=== PATIENT | female | born 1985 | race Caucasian/White ===

== ENCOUNTER 2021-08-27 07:41 | Inpatient (IN) ==
[2021-08-27] MEDS ORDERED: OXYTOCIN 30 UNITS/500 ML BAG IV PRN ×3 (08:21→17:28)
--- NOTE | 2021-08-27 08:41 | History & Physical Report ---
Date of Service August 27, 2021 Assessment & Plan (1) : Plan: 36 y/o at 37 wga w/ SROM VSS Fetus cat 1 SROM - SROM confirmed, 2cm now and donna so will manage expectantly for now GBS neg Epidural PRN History of Present Illness Chief Complaint: SROM Primary Care Provider: Bob Trejo MD 36 y/o at 37 wga w/ SUNITHA 12/10 by LMP presents w/ c/o LOF since 5AM. Stood up and felt large gush of fluid and small amount of continuous leaking since then. +FM, denies painful ctx. 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: G1 2017 at 40 wks G2 SAB 2019 G3 current q28-30d cycles Hx genital warts 02/2021 neg cytology Allergies Allergy/AdvReac Type Severity Reaction Status Date / Time No Known Drug Allergies Allergy Verified 08/20/21 15:53 Home Medications Medication Instructions Recorded Confirmed Type vitamins-iron fumarate 27 1 tab PO DAILY 09/03/18 08/20/21 History mg iron-folic acid 0.8 mg tablet ( Vitamin) Patient History Medical History Genital warts History of chicken pox Need for rhogam due to Rh negative mother No known health problems Surgical History No history of previous surgery [place] teeth extracted Family History Grandmother (Maternal) Pancreatic cancer Mother Thyroid disease Hypothyroidism Grandfather (Maternal) Lung cancer Other Dyslipidemia Denies family history of Ovarian cancer Prostate cancer Breast cancer Social History Smoking Status: Never smoker Second Hand Exposure: No; Do You Dip or Chew Tobacco: No; Tobacco Cessation Education Requested by Patient: No Hx Alcohol Use: No Hx Substance Use: No Preferred Language: Mohawk Communication Ability: Effective Beliefs That Will Affect Care: None marital status: marital status details: John (32) [phone] Current Living Situation: Spouse Current Living Situation Comment: lives with spouse and daughter current occupational status: employed 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 Safe at Home: Yes Safety Concerns: Feels Safe At This Time Assistive Devices: None Physical Exam Constitutional: WD/WN, vitals as above Respiratory: normal respiratory effort; no respiratory distress and no labored breathing Genitourinary: OB Exam Abdomen: + vertex and + estimated weight (7-8) Manual OB Exam: + cervical dilation 2 cm, + cervical effacement 50%, + station - 2 and + amniotic fluid (+nitrazine, ferning, small amount of pooling) OB Exam Monitor Tracing: + external FHT monitor used, + external uterine monitor used (q4) and + category I (145/mod/+accel/-decel) Results & Data ([facility]) Vital Signs (Past 12 Hours) Vital Signs Pulse BP 08/27/21 07:51 102 H 139/85 Laboratory Results OB Labs: Blood Type O Negative 02/10/21 Antibody Screen NEGATIVE 06/30/21 Hemoglobin 11.2 g/dL (12.0-16.0) L 06/30/21 Hematocrit 32.3 % (37-47) L 06/30/21 Mean Corpuscular Volume 93.8 fL (80-100) 02/10/21 Platelet Count 261 K/uL (130-400) 02/10/21 Rubella IgG Antibody Immune (Immune) 02/10/21 Rapid Plasma Reagin Nonreactive (Nonreactive) 02/10/21 Hepatitis B Surface Antigen Neg (Neg) 02/10/21 HIV (1&2) Ab and P24 Ag, 4th Gener Neg (Neg) 02/10/21 Glucose 1 Hour 50 gm Load 117 mg/dl (70-130) 06/30/21 Maternal Serum Alpha Fetoprotein 46.5 ng/mL 04/08/21 OB Optional Labs: Chlamydia trachomatis RNA NOT DETECTED (NOT DETECTED) 02/10/21 Neisseria gonorrhoeae RNA NOT DETECTED (NOT DETECTED) 02/10/21 Alpha Fetoprotein Triple Screen SEE NOTE 04/08/21 Labs Reviewed: low risk cfdna neg cf/sma neg afp Diagnostic Findings ant plac Coding Level of Care Code None Diagnoses Z34.90
[2021-08-27 09:06] LABS: Hematocrit (blood only) 33.1 % (37-47); Hemoglobin 11.2 g/dL (12.0-16.0); Mean Corpuscular Hemoglobin 31.4 pg (25-34); Mean Corpuscular Hgb Conc 33.8 g/dL (32-36); Mean Corpuscular Volume 92.7 fL (80-100); Mean Platelet Volume 10.3 fL (7.4-10.4); Platelet Count 219 K/uL (130-400); RDW Coefficient of Variation 13.1 % (11.5-14.5); RDW Standard Deviation 44.2 fL (36.4-46.3); Red Blood Count 3.57 M/uL (4.2-5.4); White Blood Count 10.08 K/uL (4.8-10.8)
[2021-08-27] MEDS: LACTATED RINGER'S 1,000 ML IV PRN ×2 (12:27→13:53)
[2021-08-27] MEDS ORDERED: BUPIVACAINE 0.25% 30 ML VIAL ONE (12:38)
[2021-08-27] MEDS ORDERED: SODIUM CHLORIDE 0.9% INJ 10 ML VIAL ONE (12:38)
[2021-08-27] MEDS ORDERED: ePHEDrine sulfate 50 MG/ML AMP ONE (12:38)
[2021-08-27] MEDS ORDERED: fentaNYL 2MCG/ML ROPIVACAINE 1.25MG/ML 100 ML BAG EPI ONE (12:39)
[2021-08-27] MEDS ORDERED: fentaNYL citrate 100 MCG/2 ML VIAL ONE (12:39)
[2021-08-27] MEDS ORDERED: diphenhydrAMINE 50 MG/ML VIAL IV PRN (14:04)
[2021-08-27] MEDS ORDERED: fentaNYL 2MCG/ML ROPIVACAINE 1.25MG/ML 100 ML BAG EPI PRN (14:04)
[2021-08-27] MEDS ORDERED: ePHEDrine sulfate 50 MG/ML AMP IV PRN (14:04)
[2021-08-27] MEDS ORDERED: ONDANSETRON INJ 2 MG/ML 2 ML VIAL IV PRN (14:04)
[2021-08-27] MEDS ORDERED: NALOXONE HCL 1 MG in SODIUM CHLORIDE 0.9% 1000ML 1,000 ML IV PRN (14:04)
[2021-08-27] MEDS ORDERED: NALBUPHINE HCL INJ 10 MG/ML AMP IV PRN (14:04)
[2021-08-27] MEDS ORDERED: NALOXONE HCL 0.4 MG/1 ML VIAL/CARP IV PRN (14:04)
--- NOTE | 2021-08-27 14:04 | Anesthesiology Consultation ---
Date of Service August 27, 2021 Assessment & Plan (1) Encounter for pre-operative examination: Chart Review Chart Review: Patient NOT seen in Pre Admission Testing and Acceptable Risk for Labor Epidural Consults Requested none ASA ASA2 Proposed Anesthesia Anesthesia Type: Labor Epidural Risk / Benefits Reviewed With: PT / POA / Parent / Guardian, Accepts Plan and Informed Consent Obtained History Height/Weight Height: 5 ft 7 in Weight: 84.822 kg Allergies Allergy/AdvReac Type Severity Reaction Status Date / Time No Known Drug Allergies Allergy Verified 08/20/21 15:53 Medications Home Medications Medication Instructions Recorded Confirmed Last Taken vitamins-iron fumarate 27 1 tab PO DAILY 09/03/18 08/27/21 08/26/21 16:00 mg iron-folic acid 0.8 mg tablet ( Vitamin) Active Medications Generic Name Dose Route Start Last Admin Trade Name Freq PRN Reason Stop Dose Admin Lactated Ringer's 1,000 mls @ 125 mls/hr 08/27/21 08:21 08/27/21 15:15 Lr IV 08/29/21 08:20 Infused .Q8H PRN Infusion L&D Protocol Protocol Past Medical History Medical History Genital warts History of chicken pox Need for rhogam due to Rh negative mother No known health problems Exercise / Class Metabolic Activity II 4-5 Yardwork/Stairs/Walk up hill Past Family History Family History Grandmother (Maternal) Pancreatic cancer Mother Thyroid disease Hypothyroidism Grandfather (Maternal) Lung cancer Other Dyslipidemia Denies family history of Ovarian cancer Prostate cancer Breast cancer Past Surgical History Surgical History No history of previous surgery [place] teeth extracted Past Anesthesia History No Hx of Anesthesia Complications and No Family Hx of Anesthesia Complications History of PONV No Hx of PONV and No Hx of Motion Sickness Social History Smoking Status: Never smoker Do You Dip or Chew Tobacco: No Hx Alcohol Use: No Hx Substance Use: No substance use type: does not use Physical Exam Vital Signs Last Vital Signs Temp 37.2 C 08/27/21 11:50 Pulse 103 H 11/19/21 18:15 Resp 16 08/27/21 11:50 BP 137/91 08/27/21 18:15 Pulse Ox 100 08/27/21 16:53 ENMT Mouth: no dentition abnormality Thyromental Distance: > or= 3.5 Finger Breadths Mallampati Class: II Neck normal visual inspection Respiratory normal respiratory effort Auscultation: lungs clear to auscultation bilaterally Cardiovascular Rate/Rhythm: regular rate and regular rhythm Psychiatric Orientation: alert Testing Laboratory Results 08/27/21 08:41
[2021-08-27] MEDS ORDERED: SILVER NITR/POTASSIUM NITRATE APPLICATOR ONE (17:03)
[2021-08-27] MEDS ORDERED: SUPERCREAM 0.870% 15 GM JAR EXT PRN (17:28)
[2021-08-27] MEDS ORDERED: HYDROCORTISONE ACETATE 25 MG SUPP PR PRN (17:28)
[2021-08-27] MEDS ORDERED: ACETAMINOPHEN 325 MG TAB PO PRN (17:28)
[2021-08-27] MEDS ORDERED: BENZOCAINE 20% AER SPR 82.5 GM CAN EXT PRN (17:28)
[2021-08-27] MEDS ORDERED: oxyCODONE/ACETAMINOPHEN 5mg/325mg TAB PO PRN (17:28)
[2021-08-27] MEDS ORDERED: DIPHTHERIA/TETANUS/PERTUSSIS 0.5 ML SYR/VIAL IM ONE (17:28)
--- NOTE | 2021-08-27 17:37 | Delivery Summary ---
Vaginal Delivery Summary Date of Service August 27, 2021 Vaginal Delivery Summary Patient is a 36-year-old 3 para 1-0-1-1 female who presents at 37 weeks with spontaneous rupture of membranes. She walked for several hours but cervix remained the same. A fore serrato was then ruptured for a copious amount of clear fluid. She then establish a more consistent contraction pattern. She requested epidural analgesia which was effective. Her contractions were then augmented with Pitocin. She progressed to fully dilated with the urge to push. She pushed effectively over intact perineum for delivery of a viable female infant. The was vigorous and crying upon delivery. After 1 minute the cord was clamped and cut. Cord blood was obtained. The placenta was then expressed intact with a 3 vessel cord. the perineum was intact but she had several perineal warts that she wanted removed. Metzenbaum scissors were used to remove the lesions. A large matte of warts were removed from the coccyx area and the defect was repaired with 3-0 chromic. Hemostasis at the other sites was controlled with siver nitrate. bleeding was controlled with dilute pitocin. EBL is 100 cc. Mother and are doing well post delivery. 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
--- NOTE | 2021-08-27 18:25 | Anesthesia Procedure Note ---
Date of Service August 27, 2021 Anesthesia Post Epidural Note Vital Signs Vital Signs: Temp Pulse Resp BP Pulse Ox 37.2 C 103 H 16 137/91 100 08/27/21 11:50 08/27/21 18:15 08/27/21 11:50 08/27/21 18:15 08/27/21 16:53 Pain Intensity Bilateral Abdomen: Pain Intensity: 0 Notes Mental Status: alert / awake / arousable Nausea / Vomiting: adequately controlled Pain: adequately controlled Airway Patency, RR, SpO2: stable & adequate BP & HR: stable & adequate Hydration State: stable & adequate Neuraxial Anesthesia: was administered and sensory block is resolving Anesthetic Complications: no major complications apparent and Pt Satisfied with anesthetic care Epidural: Removed without complications and With tip intact
[2021-08-27] MEDS: IBUPROFEN 600 MG TAB PO PRN ×2 (19:42→23:47)
[2021-08-27] MEDS: DOCUSATE SODIUM 100 MG CAP PO SCH (20:40)
[2021-08-28] MEDS: IBUPROFEN 600 MG TAB PO PRN ×4 (04:54→20:32)
--- NOTE | 2021-08-28 06:22 | Obstetrical Progress Note ---
Date of Service <Cyrus Dennison DO - Last Filed: 08/28/21 07:06> August 28, 2021 Assessment & Plan <Cyrus Dennison DO - Last Filed: 08/28/21 07:06> (1) Encounter for care and examination after delivery: 36 yo post day 1 from vaginal delivery, doing well. -Continue routine post care. - vital signs reviewed and WNL. (Tmax 37.2) -Blood type O-, GBS -, Rubella Immune -Encourage ambulation, monitor and control pain with Motrin, tylenol PRN, resume regular diet, monitor lochia. -encourage breast feeding. -hemoglobin 11.10 <Carolina Harrison MD, FACOG - Last Filed: 08/28/21 07:24> (1) Encounter for care and examination after delivery: Subjective <Cyrus Dennison DO - Last Filed: 08/28/21 07:06> Ambulation: ambulating normally Voiding: no voiding problems Passing Gas:: Yes Diet Tolerance:: regular diet Lochia:: Small Feeding Type:: breast feeding Current Pain Level(1-10): 0 Review of Systems Denies fever, chills, sweats Denies shortness of breath, difficulty breathing, chest pain, palpitations, chest pressure. Denies breast pain. Denies dysuria. Denies headache or changes in vision Physical Exam <Cyrus Dennison DO - Last Filed: 08/28/21 07:06> General: Alert, oriented. No acute distress. Uterus: Uterine fundus firm, palpable 3 cm below umbilicus. Lower Extremities: No lower extremity edema or swelling. No deep calf pain. Aldo's negative bilaterally Results & Data ([facility]) <Cyrus Dennison DO - Last Filed: 08/28/21 07:06> Vital Signs (Past 12 Hours) Vital Signs Temp Pulse Pulse Resp BP BP Pulse Ox 08/28/21 04:50 36.5 C 75 16 133/85 97 08/27/21 23:30 36.9 C 80 16 124/82 97 08/27/21 20:25 36.8 C 87 18 133/80 97 08/27/21 20:00 37.0 C 08/27/21 19:30 91 H 158/86 H 08/27/21 19:15 116 H 178/103 H 08/27/21 19:00 112 H 122/74 08/27/21 18:45 105 H 148/77 H 08/27/21 18:30 95 H 132/91 <Carolina Harrison MD, FACOG - Last Filed: 08/28/21 07:24> Co-Signing Physician Notes Resident Physician Supervision Note: I was present with Dr. Dennison during the history and exam. I discussed the case with the resident and agree with the findings and plan as documented in the note. Any exceptions or clarifications are listed here: [None] Documented By: Carolina Harrison MD, FACOG Resident Activity Tracking <Cyrus Dennison DO - Last Filed: 08/28/21 07:06> Resident Involvement: Resident Care Provided Care Provided: OB Delivery
[2021-08-28 06:51] LABS: Hematocrit (blood only) 29.7 % (37-47); Hemoglobin 9.9 g/dL (12.0-16.0); Mean Corpuscular Hemoglobin 31.3 pg (25-34); Mean Corpuscular Hgb Conc 33.3 g/dL (32-36); Mean Platelet Volume 9.9 fL (7.4-10.4); Platelet Count 174 K/uL (130-400); RDW Coefficient of Variation 13.2 % (11.5-14.5); Red Blood Count 3.16 M/uL (4.2-5.4)
[2021-08-28] MEDS: PRENATAL VITAMIN 1 TAB PO SCH (08:13)
[2021-08-28] MEDS: DOCUSATE SODIUM 100 MG CAP PO SCH ×2 (08:13→20:32)
[2021-08-28] MEDS ORDERED: bisacodyL 5 MG TABEC PO SCH (20:00)
[2021-08-29] MEDS ORDERED: bisacodyL 10 MG SUPP PR PRN
[2021-08-29] MEDS: IBUPROFEN 600 MG TAB PO PRN ×2 (03:01→08:04)
[2021-08-29] MEDS: PRENATAL VITAMIN 1 TAB PO SCH (08:04)
[2021-08-29] MEDS: DOCUSATE SODIUM 100 MG CAP PO SCH (08:04)
--- NOTE | 2021-08-29 08:09 | Obstetrical Progress Note ---
Date of Service August 29, 2021 Assessment & Plan (1) Encounter for care and examination after delivery: 36 yo post day 2 from vaginal delivery, doing well. Stable for discharge Subjective Ambulation: ambulating normally Voiding: no voiding problems Passing Gas:: Yes Diet Tolerance:: regular diet Lochia:: Moderate Feeding Type:: breast feeding Physical Exam Constitutional WD/WN, vitals as above Respiratory normal respiratory effort; no respiratory distress and no labored breathing Gastrointestinal (Abdomen) Inspection/Auscultation: abdomen normal to inspection; abdomen not distended Percussion/Palpation: abdomen soft; abdomen nontender, no guarding and abdomen not rigid Genitourinary OB Exam Abdomen: + fundal height Fundus: + firm and + relation to umbilicus (Below); not tender or not boggy Results & Data ([facility]) Vital Signs (Past 12 Hours) Vital Signs Temp Pulse Resp BP 08/28/21 23:00 37.1 C 71 18 114/73 08/28/21 20:20 36.9 C 84 18 123/80
== END 2021-08-29 11:10 | disposition home or self-care (01) | DRG 806 ==
LOC: OPB 07:41 → 4S1 07:42 → 4S2 20:00

== ENCOUNTER 2024-02-09 03:57 | Inpatient (IN) ==
[2024-02-09] MEDS ORDERED: LIDOCAINE 1% LOCAL 20 ML VIAL INFIL PRN (04:26)
--- NOTE | 2024-02-09 04:34 | History & Physical Report ---
Date of Service February 09, 2024 Assessment & Plan (1) SROM (spontaneous rupture of membranes): Plan: 39 yo at 37 2/7 wga presents w/ SROM/labor VSS Fetus cat 1 Labor - donna regularly, augment prn GBS neg desires epidural History of Present Illness Primary Care Provider: Bob Trejo MD 39 at 37 2/7 wga presents w/ LOF. Large gush around 240AM and continued leaking since. Regular ctx since. 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: G1 2017 G2 2019 SAB G3 2020 G4 current 02/2021 neg cyto Allergies Allergy/AdvReac Type Severity Reaction Status Date / Time No Known Drug Allergies Allergy Verified 02/05/24 15:48 Home Medications Medication Instructions Recorded Confirmed Type vitamins-iron fumarate 27 1 tab PO DAILY 09/03/18 02/05/24 History mg iron-folic acid 0.8 mg tablet ( Vitamin) Patient History Medical History Genital warts History of chicken pox Need for rhogam due to Rh negative mother No known health problems Surgical History No history of previous surgery [place] teeth extracted Family History Grandmother (Maternal) Pancreatic cancer Mother Thyroid disease Hypothyroidism Grandfather (Maternal) Lung cancer Other Dyslipidemia Denies family history of Ovarian cancer Prostate cancer Breast cancer Social History (Updated 07/17/23 @ 15:09 by Joanna Morales) Smoking Status: Never smoker Second Hand Exposure: No; Do You Dip or Chew Tobacco: No; Hx Alcohol Use: No Hx Substance Use: No Preferred Language: Arabic Communication Ability: Effective Roll Wrapper Required: No Beliefs That Will Affect Care: None marital status: marital status details: John (34) [phone] Current Living Situation: Family Current Living Situation Comment: Lives with , 2 children current occupational status: employed 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 Feels Safe at Home: Yes Assistive Devices: Glasses Physical Exam Genitourinary: Manual OB Exam: + cervical dilation 3 cm, + cervical effacement 70%, + station -2 and + amniotic fluid nitrazine positive and ferning present OB Exam Monitor Tracing: + external FHT monitor used, + external uterine monitor used (q4) and + category I (150/mod/+accel/-decel) Results & Data Vital Signs (Past 12 Hours) Vital Signs Pulse BP 02/09/24 04:21 99 H 128/83 Laboratory Results OB Labs: Blood Type O Negative 12/07/23 Antibody Screen NEGATIVE 12/07/23 Hemoglobin 11.7 g/dl (12.0-16.0) L 12/07/23 Hematocrit 32.4 % (37.0-47.0) L 12/07/23 Mean Corpuscular Volume 91.6 fL (80.0-100.0) 08/15/23 Platelet Count 223 K/uL (130-400) 08/15/23 Rubella IgG Antibody Equivocal (Immune) L 08/15/23 Rapid Plasma Reagin Nonreactive (Nonreactive) 08/15/23 Hepatitis B Surface Antigen Neg (Neg) 02/10/21 Hepatitis B Surface Antigen. NON-REACTIVE (NON-REACTIVE) 08/15/23 Hepatitis C Antibody (EIA) NON-REACTIVE (NON-REACTIVE) 08/15/23 HIV (1&2) Ab and P24 Ag, 4th Gener Neg (Neg) 02/10/21 HIV (1&2) Ag and Ab Confirmation NON-REACTIVE (NON-REACTIVE) 08/15/23 Glucose 1 Hour 50 gm Load 126 mg/dl (70-130) 12/07/23 Maternal Serum Alpha Fetoprotein 66.8 ng/mL 09/13/23 OB Optional Labs: Chlamydia trachomatis RNA Not Detected (NotDetected) 07/24/23 Neisseria gonorrhoeae RNA Not Detected (NotDetected) 07/24/23 Alpha Fetoprotein Triple Screen SEE NOTE 09/13/23 Labs Reviewed: neg cf/sma in prior - HK GBS neg Coding Level of Care Code None Diagnoses SROM (spontaneous rupture of membranes)
[2024-02-09] MEDS: LACTATED RINGER'S 1,000 ML IV PRN (04:49)
[2024-02-09 04:59] LABS: Hematocrit (blood only) 31.6 % (37.0-47.0); Hemoglobin 10.4 g/dl (12.0-16.0); Mean Corpuscular Hemoglobin 29.7 pg (25.0-34.0); Mean Corpuscular Hgb Conc 32.9 g/dL (32.0-36.0); Mean Corpuscular Volume 90.3 fL (80.0-100.0); Mean Platelet Volume 10.4 fL (9.4-12.4); Platelet Count 226 K/uL (130-400); RDW Coefficient of Variation 13.5 % (11.5-14.5); RDW Standard Deviation 44.5 fL (36.4-46.3); White Blood Count 12.65 K/ul (4.8-10.8)
[2024-02-09] MEDS ORDERED: fentaNYL citrate PF 100 MCG/2 ML VIAL EPI STA (05:07)
[2024-02-09] MEDS ORDERED: diphenhydrAMINE 50 MG/ML VIAL IV PRN (05:07)
[2024-02-09] MEDS ORDERED: ePHEDrine sulfate 50 MG/ML AMP IV PRN (05:07)
[2024-02-09] MEDS ORDERED: fentaNYL citrate PF 100 MCG/2 ML VIAL EPI PRN (05:07)
[2024-02-09] MEDS ORDERED: NALOXONE HCL 0.4 MG/1 ML VIAL/CARP IV PRN (05:07)
[2024-02-09] MEDS ORDERED: LIDOCAINE 2% MPF LOCAL 5 ML VIAL EPI PRN (05:07)
[2024-02-09] MEDS ORDERED: BUPIVACAINE 0.25% PF 30 ML VIAL EPI STA (05:07)
[2024-02-09] MEDS ORDERED: NALOXONE HCL 1 MG in SODIUM CHLORIDE 0.9% 1,000 ML IV PRN (05:07)
[2024-02-09] MEDS ORDERED: SODIUM CHLORIDE 0.9% PF INJ 10 ML VIAL EPI STA (05:07)
[2024-02-09] MEDS ORDERED: fentANYL 2 MCG/ML BUPIVacaine 0.125%-NSS 100ML BAG EPI PRN (05:07)
[2024-02-09] MEDS ORDERED: LIDOCAINE 2%/EPINEPHRINE 1:200,000 20 ML PF EPI STA (05:07)
[2024-02-09] MEDS ORDERED: ROPIVACAINE 0.5% PF 5 MG/ML 20 ML VIAL EPI PRN (05:07)
[2024-02-09] MEDS ORDERED: SODIUM CHLORIDE 0.9% PF INJ 10 ML VIAL EPI PRN (05:07)
[2024-02-09] MEDS ORDERED: NALBUPHINE HCL 5 MG in SYRINGE 0 ML IV PRN (05:07)
[2024-02-09] MEDS ORDERED: BUPIVACAINE 0.25% PF 30 ML VIAL EPI PRN (05:07)
--- NOTE | 2024-02-09 05:07 | Anesthesiology Consultation ---
Date of Service February 09, 2024 Assessment & Plan (1) Encounter for pre-operative examination: Chart Review Chart Review: Patient NOT seen in Pre Admission Testing and Acceptable Risk for Labor Epidural Consults Requested none History Height/Weight Height: 5 ft 7 in Weight: 87.09 kg Allergies Allergy/AdvReac Type Severity Reaction Status Date / Time No Known Drug Allergies Allergy Verified 02/05/24 15:48 Medications Home Medications Medication Instructions Recorded Confirmed Last Taken vitamins-iron fumarate 27 1 tab PO DAILY 09/03/18 02/05/24 02/08/24 mg iron-folic acid 0.8 mg tablet ( Vitamin) Active Medications Generic Name Dose Route Start Last Admin Trade Name Freq PRN Reason Stop Dose Admin Lactated Ringer's 1,000 mls @ 125 mls/hr 02/09/24 04:26 02/09/24 04:49 Lr IV 02/11/24 04:25 999 mls/hr .Q8H PRN Administration L&D Protocol Protocol Past Medical History Medical History Genital warts Need for rhogam due to Rh negative mother History of chicken pox No known health problems Past Family History Family History Grandmother (Maternal) Pancreatic cancer Mother Thyroid disease Hypothyroidism Grandfather (Maternal) Lung cancer Other Dyslipidemia Denies family history of Ovarian cancer Prostate cancer Breast cancer Past Surgical History Surgical History [place] teeth extracted No history of previous surgery Social History Smoking Status: Never smoker Do You Dip or Chew Tobacco: No Hx Alcohol Use: No Hx Substance Use: No substance use type: does not use Physical Exam Vital Signs Last Vital Signs Temp 98.1 F 02/09/24 04:26 Pulse 99 H 02/09/24 04:26 Resp 18 02/09/24 04:26 BP 128/83 02/09/24 04:26 Testing Laboratory Results 02/09/24 04:39
[2024-02-09] MEDS: BUPIVACAINE 0.25% PF 30 ML VIAL ONE (05:37)
[2024-02-09] MEDS: LIDOCAINE 2%/EPINEPHRINE 1:200,000 20 ML PF ONE (05:37)
[2024-02-09] MEDS: fentANYL 2 MCG/ML BUPIVacaine 0.125%-NSS 100ML BAG ONE (05:38)
[2024-02-09] MEDS: fentaNYL citrate PF 100 MCG/2 ML VIAL ONE (06:40)
[2024-02-09] MEDS: ePHEDrine sulfate 50 MG/ML AMP ONE (06:40)
[2024-02-09] MEDS: SODIUM CHLORIDE 0.9% PF INJ 10 ML VIAL ONE (06:41)
--- NOTE | 2024-02-09 07:33 | Labor Progress Brief Note ---
Date of Service February 09, 2024 Subjective comfortable w/ epidural Assessment & Plan (1) SROM (spontaneous rupture of membranes): Plan: 39 yo at 37 2/7 wga presents w/ SROM/labor VSS Fetus cat 1 Labor - good progress, augment prn GBS neg epidural in place Admission and Anticipated Discharge Date Admission Date: February 09, 2024 Physical Exam Genitourinary: Manual OB Exam: + cervical dilation 5 cm, + cervical effacement 90% and + station -1 OB Exam Monitor Tracing: + external FHT monitor used, + external uterine monitor used (q4) and + category I (150/mod/+accel/-decel) Results & Data Vital Signs (Past 12 Hours) Vital Signs Temp Pulse Resp BP Pulse Ox 02/09/24 07:26 102 H 95/59 L 100 02/09/24 07:21 100 H 99 02/09/24 07:16 102 H 100 02/09/24 07:11 99 02/09/24 07:11 102 H 02/09/24 07:11 113 H 110/73 02/09/24 07:06 118 H 100 02/09/24 07:01 99 H 100 02/09/24 06:57 93 H 114/65 02/09/24 06:56 95 H 99 02/09/24 06:51 102 H 99 02/09/24 06:46 103 H 100 02/09/24 06:42 93 H 105/63 02/09/24 06:41 98 H 100 02/09/24 06:36 95 H 100 02/09/24 06:31 92 H 100 02/09/24 06:27 100 H 103/58 L 02/09/24 06:26 86 100 02/09/24 06:25 98.1 F 02/09/24 06:21 83 100 02/09/24 06:16 92 H 100 02/09/24 06:11 87 99 02/09/24 06:07 116 H 97/60 L 02/09/24 06:06 91 H 100 02/09/24 06:02 107 H 105/67 02/09/24 06:01 94 H 100 02/09/24 05:58 101 H 105/63 02/09/24 05:56 89 100 02/09/24 05:51 92 H 100 02/09/24 05:50 108 H 109/67 02/09/24 05:48 106 H 110/65 02/09/24 05:46 99 02/09/24 05:46 106 H 02/09/24 05:46 106 H 105/68 02/09/24 05:44 95 H 96/62 L 02/09/24 05:42 112 H 99/59 L 02/09/24 05:41 100 02/09/24 05:41 99 H 02/09/24 05:41 105 H 119/65 02/09/24 05:38 109 H 118/61 02/09/24 05:36 97 H 113/57 L 99 02/09/24 05:35 113 H 123/68 02/09/24 05:32 96 H 118/73 02/09/24 05:31 103 H 100 02/09/24 05:30 87 124/75 02/09/24 05:26 93 H 99 02/09/24 05:21 124 H 99 02/09/24 05:16 112 H 100 02/09/24 05:11 87 95 02/09/24 04:26 98.1 F 99 H 18 128/83 02/09/24 04:21 98.1 F 99 H 18 128/83 Coding Level of Care Code None Diagnoses SROM (spontaneous rupture of membranes)
[2024-02-09] MEDS: OXYTOCIN 30 UNITS/NSS 30 UNITS/500 ML BAG IV PRN (08:10)
--- NOTE | 2024-02-09 08:40 | Delivery Summary ---
Vaginal Delivery Summary Date of Service February 09, 2024 Vaginal Delivery Summary and 2nd Degree LAC PREOPERATIVE DIAGNOSIS: 1. Single intrauterine at 37 2/7 wga 2. SROM/Labor POSTOPERATIVE DIAGNOSIS: 1. Single intrauterine at 37 2/7 wga 2. SROM/Labor 3. Delivered PROCEDURE: 1. Normal spontaneous vaginal delivery. SURGEON: Raven Barreto MD ANESTHESIA: Epidural. ESTIMATED BLOOD LOSS: 150 mL FLUIDS: Continuous LR. URINE OUTPUT: None. COMPLICATIONS: Shoulder dystocia CONDITION: Stable. INDICATIONS: 39 yo at 37 2/7 wga presented w/ LOF and ctx and found to be ruptured. She received an epidural for pain control and progressed to complete and desired to push FINDINGS: A viable female infant, weight pending with Apgars of 8 and 9 at 1 and 5 minutes respectively. SPECIMEN: Cord blood, placenta OPERATIVE REPORT: The patient progressed to 10 cm, 100% effaced and +2 station, pushed over intact perineum with anesthesia to deliver a viable female infant, weight and Apgars as above. Head of delivered in GEE position. No nuchal cord was present. Shoulders did not deliver with gentle downward traction. Shoulder dystocia called. Rainer and suprapubic maneuver were performed and then shoulders delivered. Remainder of body delivered without difficulty. was delivered to maternal abdomen and nursing staff. Delayed cord clamping was performed for 60 seconds. Cord was clamped and cut. Cord blood was obtained. Placenta delivered spontaneously intact with 3-vessel cord. IV oxytocin and fundal massage were given for excellent hemostasis. Vagina, cervix, perineum, and placenta were inspected. A small second degree laceration was noted and repaired using 3-0 vicryl. Sponge and needle counts correct x2. No sponges were left behind. Mother and stable in immediate period. Events of dystocia were reviewed with the patient and partner. [facility] [place] Vaginal Delivery Charge Vaginal Delivery Codes: 38876 global code for the antepartum, delivery, and post- Delivery Type Details: and 2nd Degree LAC
[2024-02-09] MEDS ORDERED: bisacodyL 10 MG SUPP PR PRN (09:33)
[2024-02-09] MEDS ORDERED: OXYTOCIN 30 UNITS/NSS 30 UNITS/500 ML BAG IV PRN (09:33)
[2024-02-09] MEDS ORDERED: HYDROCORTISONE ACETATE 25 MG SUPP PR PRN (09:33)
[2024-02-09] MEDS ORDERED: ACETAMINOPHEN 325 MG TAB PO PRN (09:33)
--- NOTE | 2024-02-09 09:53 | Anesthesia Procedure Note ---
Date of Service February 09, 2024 Anesthesia Post Epidural Note Vital Signs Vital Signs: Temp Pulse Resp BP Pulse Ox 36.9 C 116 H 20 138/82 100 02/09/24 07:31 02/09/24 09:38 02/09/24 09:07 02/09/24 09:38 02/09/24 08:06 Notes Mental Status: alert / awake / arousable Nausea / Vomiting: adequately controlled Pain: adequately controlled Airway Patency, RR, SpO2: stable & adequate BP & HR: stable & adequate Hydration State: stable & adequate Neuraxial Anesthesia: was administered and sensory block is resolving Anesthetic Complications: no major complications apparent and Pt Satisfied with anesthetic care Epidural: Removed without complications and With tip intact
[2024-02-09] MEDS: IBUPROFEN 600 MG TAB PO PRN (14:55)
[2024-02-09] MEDS: BENZOCAINE 20% SPRY 85 APPLN/85 GM CAN EXT PRN (15:30)
[2024-02-09] MEDS: DIPHTHER/TETAN/PERTUS Vaccine (Tdap, Adol/Adult) 0.5mL IM ONE (18:48)
[2024-02-09] MEDS: MEASLES, MUMPS & RUBELLA VIRUS VACCINE (MMR) 0.5ML VIAL SQ ONE (18:50)
[2024-02-09] MEDS: DOCUSATE SODIUM 100 MG CAP PO SCH (20:20)
--- NOTE | 2024-02-10 06:57 | Obstetrical Progress Note ---
Date of Service February 10, 2024 Assessment & Plan (1) care following vaginal delivery: Plan Doing well Routine post care DC today Admission and Anticipated Discharge Date Admission Date: February 09, 2024 Supervising Physician Co-Signing Physician Notes Resident Physician Supervision Note: I interviewed and examined the patient. Discussed with Dr. Ennsi and agree with findings and plan as documented in the note. Any exceptions or clarifications are listed here: [None] Documented By: Carolina Harrison MD, FACOG Subjective 39 yo post day 1 s/p Ambulation: ambulating normally Voiding: no voiding problems Passing Gas:: Yes Diet Tolerance:: regular diet Lochia:: Small Current Pain Level: minimal Resting comfortably this AM in NAD. Denies RODRIGUEZ, CP, SOB, N/V/D, LE pain/swelling. Desires dc today Review of Systems Review of Systems: reviewed, per HPI Physical Exam Physical Exam: General: patient resting comfortably, NAD, non-toxic in appearance, answers questions appropriately. Skin: warm, dry, intact HEENT: NC/AT, anicteric sclera, conjunctiva without injection, moist mucus membranes. Heart: +S1/S2, regular, no m/r/g Lungs: equal air entry bilaterally, no rales/rhonchi/wheezes Abd: +BS, soft, NT/ND, uterine fundus firm at umbilicus. Ext: warm, no clubbing/cyanosis or edema, Aldo's neg. Neuro: nonfocal, speech intact, no facial droop, moving all extremities. Results & Data Vital Signs (Past 12 Hours) Vital Signs Temp Pulse Resp BP Pulse Ox O2 Del Method 02/10/24 02:50 36.7 C 87 18 126/81 97 Room Air 02/09/24 22:51 37 C 73 18 132/72 98 Room Air 02/09/24 18:55 37 C 84 18 137/82 97 Room Air Resident Activity Tracking Resident Involvement: Resident Care Provided Care Provided: Adult Hospital Medicine
[2024-02-10] MEDS: FERROUS SULFATE 325 MG TAB PO SCH (10:12)
[2024-02-10] MEDS: PRENATAL VITAMIN 1 TAB PO SCH (10:12)
[2024-02-10] MEDS ORDERED: bisacodyL 5 MG TABEC PO SCH (20:00)
== END 2024-02-10 17:35 | disposition home or self-care (01) | DRG 807 ==
LOC: OPB 03:57 → 4S1 04:01 → 4E1 13:37